=== PATIENT | female | born 1960 | race Caucasian/White ===

== ENCOUNTER → 2020-12-31 | Day surgery (SDC) | payer OTHER ==
[~2020-12-31] VITALS: Ht 162.6 cm; Wt 104.5 kg
[~2020-12-31] MED LIST: ADVAIR HFA 230-28 GM INH; AMOXICILLIN500 M2 PO; AMOXICILLIN500 MG PO; BUDESONIDE0.5 MG/2 M INH; CITALOPRAM HBR20 MG PO; CLARITHROMYCIN500 MG PO; DOXYCYCLINE MO100 MG PO; DUONEB 2.5-0.5M1 AMP NEB; MUCINEX 600MG600 MG PO; OMEPRAZOLE40 MG PO; PERCOCET 5-3251 EACH PO; PREDNISONE 20MG20 MG PO; PREDNISONE5 MG PO; PROAIR HFA8.5 GM INH; PULMICORT0.5 MG/2 M NEB; SENNA PLUS TAB1 EACH PO; SPIRIVA18 MCG PO; TESSALON PERLE100 MG PO; THEO-24300 MG PO; VENTOLIN (2.5 MG/3 M INH; ZITHROMAX500 MG PO
[2020-12-31 07:03] LABS: HCT 43.6 % (37.0-47.0); HGB 14.2 g/dl (12.5-16.0); MCH 29.9 pg (25.0-31.0); MCHC 32.6 g/dL (32.0-36.0); MCV 91.8 fL (78.0-100.0); MPV 10.1 fL (6.0-9.5); RBC 4.75 M/uL (4.20-5.40); RDW 14.2 % (11.5-14.0); WBC 7.2 K/uL (4.0-10.5)
[2020-12-31 07:21] LABS: ALBUMIN 3.2 g/dL (3.4-5.0); BILIRUBIN - TOTAL 0.2 mg/dL (0.2-1.0); CREATININE 0.48 mg/dL (0.51-0.95); GLOBULIN (CALCULATION) 3.6 g/dL; POTASSIUM 3.6 mmol/L (3.5-5.1); TOTAL PROTEIN 6.8 g/dL (6.4-8.2)
== END | disposition home or self-care (01) ==
LOC: FAS 06:25
PROVIDERS: Orthopaedic Surgery
DX: M75.121 Complete rotator cuff tear or rupture of right shoulder, not specified as traumatic (principal); S46.211A Strain of muscle, fascia and tendon of other parts of biceps, right arm, initial encounter; M19.011 Primary osteoarthritis, right shoulder; M75.51 Bursitis of right shoulder; G47.30 Sleep apnea, unspecified; M77.8 Other enthesopathies, not elsewhere classified; J43.9 Emphysema, unspecified; F41.9 Anxiety disorder, unspecified; K21.9 Gastro-esophageal reflux disease without esophagitis; E03.9 Hypothyroidism, unspecified; Z87.891 Personal history of nicotine dependence; Z88.1 Allergy status to other antibiotic agents; Z79.899 Other long term (current) drug therapy; X58.XXXA Exposure to other specified factors, initial encounter
CPT/HCPCS: 36415; 71045; 80053; 93005; 94640; C1713; J0171; J0690; J0735; J1100; J2250; J2704; J2795; J3010; J7120

== ENCOUNTER 2021-11-10 12:45 | Emergency (ER) | payer OTHER ==
[2021-11-10 13:52] LABS: ALBUMIN 3.2 g/dL (3.4-5.0); BILIRUBIN - TOTAL 0.5 mg/dL (0.2-1.0); BUN/CREAT RATIO (CALC) 28.6 RATIO; CREATININE 0.63 mg/dL (0.51-0.95); GLOBULIN (CALCULATION) 3.7 g/dL; POTASSIUM 4.1 mmol/L (3.5-5.1); TOTAL PROTEIN 6.9 g/dL (6.4-8.2)
[2021-11-10 14:09] LABS: BASOPHIL 0.8 % (0-2); EOSINOPHIL 3.1 % (0-5); HCT 57.4 % (37.0-47.0); HGB 18.5 g/dl (12.5-16.0); LYMPHOCYTE 13.8 % (15-48); MCH 30.5 pg (25.0-31.0); MCHC 32.2 g/dL (32.0-36.0); MCV 94.7 fL (78.0-100.0); MONOCYTE 7.3 % (0-12); MPV 10.2 fL (6.0-9.5); NEUTROPHIL 74.6 % (41-80); NRBC 0; PLT 229 K/uL (150-400); RBC 6.06 M/uL (4.20-5.40); RDW 16.5 % (11.5-14.0); WBC 9.1 K/uL (4.0-10.5)
[2021-11-10 14:32] LABS: CORONAVIRUS 2019 SARS-COV-2 NEGATIVE (NEGATIVE); INFLUENZA A NAA NEGATIVE (NEGATIVE)
[2021-11-10] MEDS ORDERED: PREDNISONE 20MG20 MG PO (16:54)
[2021-11-10] MEDS ORDERED: KLOR-CON M 1010 MEQ PO (16:54)
[2021-11-10] MEDS ORDERED: VIBRAMYCIN100 MG PO (16:54)
[2021-11-10] MEDS ORDERED: LASIX20 MG PO (16:54)
== END 2021-11-10 17:12 | disposition left against medical advice (07) ==
LOC: FER 12:45
PROVIDERS: Emergency Medicine
DX: J44.1 Chronic obstructive pulmonary disease with (acute) exacerbation (principal); J96.91 Respiratory failure, unspecified with hypoxia; I50.9 Heart failure, unspecified; Z53.8 Procedure and treatment not carried out for other reasons; F17.200 Nicotine dependence, unspecified, uncomplicated; Z20.822 Contact with and (suspected) exposure to COVID-19
CPT/HCPCS: 36415; 36600; 71045; 71250; 80053; 82803; 83880; 84484; 85025; 85379; 87040; 93005; J1940; J2930; U0002